=== PATIENT | male | born 1985 | race Caucasian/White ===

== ENCOUNTER → 2020-04-09 | Day surgery (SDC) | payer BC, OTHER ==
[~2020-04-09] MED LIST: Ketorolac 30 MG/ML SDV IVPUSH ONE; Lactated Ringers 1,000 ML IV SCH; Lidocaine 1% with EPINEPHrine 1:100,000 20 ML MDV ONE; Midazolam 1 MG/ML 2 ML SDV IV ONE; Ondansetron 4 MG/2 ML SDV IV ONE; fentaNYL 100 MCG/2 ML SDV IV ONE
--- NOTE | 2020-04-12 11:13 | OR ---
DATE OF OPERATION: 04/09/2020 PREOPERATIVE DIAGNOSIS: CHRONIC THROMBOSED HEMORRHOID. POSTOPERATIVE DIAGNOSIS: CHRONIC THROMBOSED HEMORRHOID. SURGEON: Buster Diaz MD PROCEDURE: LEFT LATERAL EXTERNAL HEMORRHOIDECTOMY. ANESTHESIA: Local plus MAC. SPECIMEN: Hemorrhoid. INDICATIONS: This 35-year-old male has had multiple episodes of thrombosed hemorrhoid on the left lateral side. By examination, he only has one single large external hemorrhoid. DESCRIPTION OF PROCEDURE: After adequate preparation, local anesthesia was used to infiltrate an area around the hemorrhoidal tissue. An incision was made on the skin and this allowed the hemorrhoid to be elevated up off the internal sphincter. There was not much of an internal component to this. There was just a small amount I took. A clamp was placed across the hemorrhoid and the hemorrhoid amputated. The mucosa of the anal canal was then closed using a running 2-0 Vicryl suture and a separate 2-0 Vicryl suture was used to close the skin in the perianal area. CINDI/BALBINA /[id number]
== END ==
LOC: CC.SDS 08:43
PROVIDERS: ATTEND Surgery
DX: K64.5 Perianal venous thrombosis (principal); F17.210 Nicotine dependence, cigarettes, uncomplicated; Z88.8 Allergy status to other drugs, medicaments and biological substances; Z11.59 Encounter for screening for other viral diseases; Z98.890 Other specified postprocedural states
CPT/HCPCS: 46320; 87635; J1885; J2250; J2405; J3010; J7120; 00902; U0002

== ENCOUNTER 2024-05-23 11:37 | Emergency (ER) | payer BC | END 2024-05-23 13:00 | disposition home or self-care (01) | LOC: CC.ED 11:37 | DX: J32.9 Chronic sinusitis, unspecified (principal); Z79.899 Other long term (current) drug therapy; Z88.5 Allergy status to narcotic agent; Z88.6 Allergy status to analgesic agent | CPT/HCPCS: 70450; 99284 ==